=== PATIENT | female | born 1975 | race Caucasian/White ===

== ENCOUNTER → 2018-01-04 | Emergency (ER) | payer OTHER ==
[~2018-01-04] VITALS: Ht 152.4 cm; Wt 77.1 kg
[~2018-01-04] MED LIST: CYMBALTA20 MG; GLIMEPIRIDE1 MG; NORVASC5 MG; RESTORIL30 M1; TRADJENTA5 MG; ULTRACET; ZANAFLEX4 M1; ZANTAC150 M3
== END | disposition home or self-care (01) ==
LOC: ER 14:15
DX: K52.89 Other specified noninfective gastroenteritis and colitis (principal)